=== PATIENT | female | born 1940 | race Caucasian/White ===

== ENCOUNTER → 2016-07-22 | Outpatient (CLI) | payer MEDICARE, BC ==
[2016-07-22 15:15] LABS: Anion Gap 11 mmol/L; Blood Urea Nitrogen 21 mg/dL (7-17); Calcium 8.8 mg/dL (8.4-10.2); Carbon Dioxide 30 mmol/L (22-30); Chloride 102 mmol/L (98-107); Glucose 120 mg/dL (74-99); Non-African American GFR(MDRD) >60 (>60 ml/min/1.73 sqM); Sodium 143 mmol/L (137-145)
[2016-07-22 15:18] LABS: Potassium 3.7 mmol/L (3.5-5.1)
--- NOTE | 2016-07-22 16:29 | CT ---
EXAMINATION TYPE: CT angio chest DATE OF EXAM: 07/22/2016 4:02 PM COMPARISON: NONE HISTORY: 75-year-old female states shortness of breath and upper back pain. TECHNIQUE: Contiguous axial scanning of the chest performed with IV Contrast, patient injected with 9 0 mL of Omnipaque 350. Coronal/sagittal MIP reconstructions performed. CT DLP: 1336 mGycm Automated exposure control for dose reduction was used. FINDINGS: Heart is borderline to mildly enlarged with trace basilar pericardial fluid anteriorly. Coronary vess el calcifications are present and are a marker for coronary artery disease. Aorta is normal caliber with mild atherosclerotic arch calcifications and conventional arch vessel br anching anatomy. Satisfactory opacification of the pulmonary arterial system. There is mild enlargement of the main ri ght and left pulmonary arteries at 2.7 and 2.9 cm, respectively, suggesting underlying pulmonary jaime ry hypertension. No acute pulmonary embolus is visualized. Suspect cement emboli to distal subsegmental right middle lobe branches, axial image 79, 82, and 92. Additional tiny subsegmental cement emboli right lower lobe axial image 113. No thoracic lymphadenopathy. Small patch of groundglass right upper lobe axial image 49. Mild diffuse bronchial wall thickening a nd scattered mild emphysematous cysts. Approximately four tiny 2 and 3 mm pulmonary nodules along the minor fissure, axial image 75. There appears to be inferior lingular collapse. No consolidation or pleural effusion. Strandy atelec tasis or scarring in the lung bases. A lap band is present. Cholecystectomy clips are seen. 6 mm nonobstructive calculus upper pole right kidney and a cortical defect along the upper pole left kidney could represent previous vascular or in fectious insult. Bones: Prior vertebral plasty changes involving a couple upper thoracic vertebra and also L1 vertebra . No osseous destructive process. IMPRESSION: 1. NO DEFINITE ACUTE PULMONARY EMBOLUS SEEN. THERE APPEARS TO BE SOME PERIPHERAL SUBSEGMENTAL CEMENT EMBOLI TO THE RIGHT MIDDLE LOBE AND RIGHT LOWER LOBE A COMPLICATION OF PRIOR VERTEBROPLASTY. 2. 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 3. A PATCH OF RIGHT UPPER LOBE GROUNDGLASS COULD REPRESENT A SMALL INFECTIOUS/INFLAMMATORY FOCUS. 4. INFERIOR LINGULAR COLLAPSE. NO CENTRAL OBSTRUCTING MASS IS SEEN. 5. A FEW 2 AND 3 MM PULMONARY NODULES ALONG THE MINOR FISSURE. A ONE YEAR FOLLOW-UP EXAM IS RECOMMEND ED.
== END | disposition home or self-care (01) ==
LOC: RADCTMAIN 14:38
PROVIDERS: ATTEND Internal Medicine Interventional Cardiology
DX: I27.2 Other secondary pulmonary hypertension (principal); J44.9 Chronic obstructive pulmonary disease, unspecified; R91.8 Other nonspecific abnormal finding of lung field
CPT/HCPCS: 80048; 71275; 36415; Q9967

== ENCOUNTER → 2016-11-07 | Outpatient (CLI) | payer MEDICARE, BC ==
--- NOTE | 2016-11-07 14:39 | XR ---
EXAMINATION TYPE: XR chest 2V DATE OF EXAM: 11/07/2016 COMPARISON: Prior chest x-ray 05/01/2016, CT angiogram of the chest 07/22/2016 HISTORY: Pneumonia TECHNIQUE: Frontal and lateral views of the chest are obtained. FINDINGS: Patient is rotated. There is volume loss in the left hemithorax. Heart is obscured. Right lung is clear. No evident pneumothorax. Vertebral plasty changes are noted. IMPRESSION: Findings could represent left lower lobe atelectasis, pneumonia and associated effusion, follow-up to resolution to exclude an underlying mass, consider chest CT as indicated. A Yellow message has been communicated to Barrington Dubois DO via the [employer] system on 11/07/2016 2:36 PM, Message ID [id number].
== END | disposition home or self-care (01) ==
LOC: RADXRMAIN 13:59
PROVIDERS: ATTEND Family Medicine
DX: J18.9 Pneumonia, unspecified organism (principal); J90 Pleural effusion, not elsewhere classified
CPT/HCPCS: 71020

== ENCOUNTER → 2017-01-02 | Outpatient (CLI) | payer MEDICARE, BC ==
--- NOTE | 2017-01-02 10:55 | XR ---
EXAMINATION TYPE: XR chest 2V DATE OF EXAM: 01/02/2017 COMPARISON: CT angiogram chest 07/22/2016. Chest radiograph 11/17/2016. HISTORY: Shortness of breath and COPD TECHNIQUE: Frontal and lateral views of the chest are obtained. FINDINGS: There is persistent obscuration of the left heart border and costophrenic angle and densit y over the lingula compatible with persistent lingular collapse as seen on the prior CT of 07/22/2016. No evidence of pleural effusion or pneumothorax. Cardiac silhouette is partially obscured but overal l upper limits of normal. Gastric lap and is partially visualized on the lateral image as is compress ion deformity of an upper thoracic vertebrae and the L1 vertebral body with vertebroplasty changes. Pulmonary hyperinflation, flattening of the diaphragms, increased anterior posterior diameter of the chest, and tapering of the pulmonary vasculature relate to underlying COPD. IMPRESSION: 1. Persistent lingular collapse without obstructing process seen on the prior CT of 07/22/2016. Given the chronicity bronchoscopy could be performed to ensure no endobronchial lesion or obstructing audelia s present. 2. Radiographic sequela of COPD.
== END | disposition home or self-care (01) ==
LOC: RADXRMAIN 10:14
PROVIDERS: ATTEND Family Medicine
DX: J98.19 Other pulmonary collapse (principal); J44.9 Chronic obstructive pulmonary disease, unspecified
CPT/HCPCS: 71020

== ENCOUNTER → 2017-01-16 | Outpatient (CLI) | payer MEDICARE, BC ==
--- NOTE | 2017-01-16 16:54 | US ---
EXAMINATION TYPE: US venous doppler duplex LE LT DATE OF EXAM: 01/16/2017 3:44 PM COMPARISON: NONE CLINICAL HISTORY: R22.42 Swelling L leg, N79.662 Pain L leg. SIDE PERFORMED: Left TECHNIQUE: The lower extremity deep venous system is examined utilizing real time linear array sonog colleen with graded compression, doppler sonography and color-flow sonography. VESSELS IMAGED: External Iliac Vein (EIV) Common Femoral Vein Deep Femoral Vein Greater Saphenous Vein * Femoral Vein Popliteal Vein Small Saphenous Vein * Proximal Calf Veins (* superficial vessels) Patient of large body habitus. Left Leg: Negative for DVT Preliminary results phoned to Hannah at Dr. Green's office. IMPRESSION: Negative exam. No evidence of deep venous thrombosis in the left leg.
== END | disposition home or self-care (01) ==
LOC: RADUSWWP 15:11
PROVIDERS: ATTEND Internal Medicine Critical Care Medicine
DX: R22.42 Localized swelling, mass and lump, left lower limb (principal)

== ENCOUNTER 2017-01-21 08:44 | Day surgery (SDC) | payer MEDICARE, BC ==
[2017-01-19 11:33] VITALS: BMI 39.4
[~2017-01-21 08:44] MED LIST: ALBUTEROL NEB (CONC) 2.5 MG/0.5 ML INHALATION ONE; ATROPINE SULFATE 0.4 MG/ML 1 ML VIAL IM ONE; LACTATED RINGERS 1,000 ML IV ONE; LACTATED RINGERS 1,000 ML IV SCH; LIDOCAINE 2% (PF) 20 MG/ML 10ML INHALATION ONE; Pre Op ABX Message 1 EACH MISC MISCELLANE ONE
[2017-01-21] MEDS ORDERED: LIDOCAINE 1% 20 ML VIAL (10MG/ML) FOR IV START INTRADERMA ONE (10:20)
[2017-01-21 10:21] LABS: Glucose,Whole Blood 113 mg/dL (75-99)
[2017-01-21 10:27] VITALS: TEMP 98.1
[2017-01-21] MEDS ORDERED: LIDOCAINE 1% INJ 10MG/ML (20 ML MDV) ONE (10:45)
[2017-01-21] MEDS ORDERED: PROPOFOL 10 MG/ML 20 ML VIAL IV ONE (10:45)
[2017-01-21] MEDS ORDERED: LIDOCAINE 2% (PF) 20 MG/ML 10ML INHALATION ONE (10:51)
[2017-01-21 11:12] VITALS: BP 168/72
[2017-01-21 11:30] VITALS: PULSE 82; RESP 18
[2017-01-21 15:26] LABS: RBC, Body Fluid 26700 /uL
--- NOTE | 2017-01-22 09:52 | PCN ---
PROCEDURE: Bronchoscopy, airway examination, therapeutic lavage and BAL. PREOPERATIVE DIAGNOSIS: Chronic obstructive pulmonary disease, retained secretions, mucous plugging and lingular collapse. POSTOPERATIVE DIAGNOSIS: Chronic obstructive pulmonary disease, retained secretions, mucous plugging and lingular collapse. The procedure was done in room 1 [facility]. There was informed consent. There was universal time out. MOLECULAR BIOLOGY PROFESSOR provided unconscious sedation and general anesthesia. After the patient was adequately sedated and being fully monitored , the bronchoscope was inserted without difficulty through the right nostril. It passed through the nasopharynx into the oropharynx and then finally into the hypopharynx. There was some secretions and purulence noted in the hypopharynx. The anterior commissure, true cords, false cords, arytenoids, piriform sinuses, right and left vallecula and epiglottis all appeared normal. After topicalization, the bronchoscope was pushed through the glottic opening into the trachea. Trachea appeared normal. There were secretions noted throughout the trachea. In the distal trachea, there were secretions noted to saddling the trachea joanna. The right and left mainstem were topicalized. The right upper lobe was bifurcated. It appeared relatively normal safe for some mild bronchoscopy. Similar findings were noted in the right middle lobe and the right lower lobe which had normal anatomy. There was no mass or tumor. There were thick secretions noted throughout. There was mild to moderate bronchitis throughout. There was hyperemia and erythema. There was mucosal friability. On the left side, after topicalization, the left upper lobe proper and its 2 segments, the lingula and its 2 segments and the left lower lobe and its 4 segments were found to be normal. There was no obstruction or tumor in the lingula. There were thick secretions. They were suctioned without difficulty after topicalization and insertion of saline. Next, the bronchoscopy was wedged into the right middle lobe. BAL took place. There was no immediate complication. The patient tolerated the procedure well. Additional secretions and mucus were removed. The bronchoscopy withdrawn. The patient was recovered. The family was talked to and the findings were discussed. KENNETH
== END 2017-01-21 12:17 | disposition home or self-care (01) ==
LOC: ORWHC2ENDO 08:44
PROVIDERS: ATTEND Internal Medicine Critical Care Medicine
DX: J44.9 Chronic obstructive pulmonary disease, unspecified (principal); J45.909 Unspecified asthma, uncomplicated; I10 Essential (primary) hypertension; G47.30 Sleep apnea, unspecified; E78.5 Hyperlipidemia, unspecified; E11.9 Type 2 diabetes mellitus without complications; K21.9 Gastro-esophageal reflux disease without esophagitis; Z79.82 Long term (current) use of aspirin; Z88.5 Allergy status to narcotic agent; Z79.51 Long term (current) use of inhaled steroids; Z99.81 Dependence on supplemental oxygen; Z87.891 Personal history of nicotine dependence; Z99.89 Dependence on other enabling machines and devices
CPT/HCPCS: 31624; 87070; 87102; 87116; 87205; 87206; 87252; 87496; 87498; 87502; 87529; 87798; 88108; 88305; 89050; 94640